=== PATIENT | female | born 1970 | race Caucasian/White ===

== ENCOUNTER 2017-02-15 05:27 | Day surgery (SDC) | payer MEDICARE ==
[~2017-02-15] VITALS: Ht 175.3 cm; Wt 98.4 kg
[~2017-02-15 05:27] MED LIST: LEXAPRO10 MG PO; STRATTERA25 MG PO
[2017-02-15 06:01] VITALS: BP 116/62
[2017-02-15] MEDS ORDERED: ENDOCET 5-3251 EACH PO (09:17)
[2017-02-15] MEDS ORDERED: IBUPROFEN800 MG PO (09:17)
[2017-02-15 10:26] VITALS: BP 123/57
[2017-02-15 11:40] VITALS: BP 107/55
[2017-02-15 12:55] VITALS: BP 130/58
== END 2017-02-15 13:15 | disposition home or self-care (01) ==
LOC: SDC 05:27
DX: D25.1 Intramural leiomyoma of uterus (principal); N80.0 Endometriosis of uterus; N72 Inflammatory disease of cervix uteri; N92.0 Excessive and frequent menstruation with regular cycle; N94.6 Dysmenorrhea, unspecified; N32.89 Other specified disorders of bladder; Z90.49 Acquired absence of other specified parts of digestive tract; Z87.891 Personal history of nicotine dependence
CPT/HCPCS: 88307; J0690; J1100; J1170; J1885; J2001; J2405; J2710; J2795; J3010; J3475